=== PATIENT | female | born 1960 | race African-American/Black ===

== ENCOUNTER 2019-05-15 10:57 | Day surgery (SDC) | payer MEDICARE, OTHER ==
[~2019-05-15 10:57] MED LIST: ceFAZolin/Water 2 GM/20 ML 2 GM/20 ML SYRINGE IV NR
[2019-05-15] MEDS ORDERED: LACTATED RINGERS 1,000 ML ONE (12:05)
--- NOTE | 2019-05-15 12:11 | Anesthesia Consultation ---
Anesthesia Consult and Med Hx Date of service: 05/15/19 - Airway Anesthetic Teeth Evaluation: Good ROM Head & Neck: Adequate Mental/Hyoid Distance: Adequate Mallampati Class: Class I Intubation Access Assessment: Good - Pulmonary Exam CTA: Yes - Cardiac Exam Cardiac Exam: RRR - Pre-Operative Health Status ASA Pre-Surgery Classification: ASA1 Proposed Anesthetic Plan: General Nerve Block: supraclavicular
[2019-05-15] MEDS ORDERED: HYDROmorphone 1 MG/1 ML INJ IV PRN (12:12)
[2019-05-15] MEDS ORDERED: fentaNYL 100 MCG/2 ML INJ IV ONE (12:12)
[2019-05-15] MEDS ORDERED: ONDANSETRON 4 MG/2 ML INJ IV PRN (12:12)
--- NOTE | 2019-05-15 12:12 | Anesthesia Day of Surgery ---
Anesthesia Day of Surgery - Day of Surgery Patient Examined: Yes Patient H&P Reviewed: Yes Patient is NPO: Yes
[2019-05-15] MEDS ORDERED: BUPIVACAINE-EPINEPHRINE/PF 0.5%-1:200,000 (30 ML) VIAL INFILTRATI ONE (12:17)
[2019-05-15] MEDS ORDERED: CELECOXIB 200 MG CAP PO NR (13:00)
[2019-05-15] MEDS ORDERED: GABAPENTIN 300 MG CAP PO NR (13:00)
[2019-05-15] MEDS ORDERED: MIDAZOLAM 2 MG/2 ML INJ IV NR (13:00)
[2019-05-15] MEDS ORDERED: LACTATED RINGERS 1,000 ML IV SCH (13:00)
[2019-05-15] MEDS ORDERED: BUPIVACAINE/PF (0.25%) 2.5 MG/ML 30 ML VIAL INFILTRATI ONE (14:29)
[2019-05-15] MEDS ORDERED: NEOMY 40 MG/POLYMYXIN B 200,000 UNITS/ML (GU) AMPULE IR ONE (14:29)
[2019-05-15] MEDS ORDERED: LIDOCAINE MPF (2%) 20 MG/1 ML VIAL 5 ML ONE (14:36)
[2019-05-15] MEDS ORDERED: HYDROmorphone 1 MG/1 ML INJ ONE (14:36)
[2019-05-15] MEDS ORDERED: PROPOFOL 200 MG/20 ML VIAL IV ONE (14:36)
[2019-05-15] MEDS ORDERED: PHENYLEPHRINE/NS 1,000 MCG/10 ML SYRINGE (OR USE) IV ONE (15:26)
[2019-05-15] MEDS ORDERED: ONDANSETRON 4 MG/2 ML INJ ONE (15:45)
--- NOTE | 2019-05-15 16:15 | XRay Report ---
XR forearm LT INDICATION / CLINICAL INFORMATION: LT RADIUS FX/ORIF LT FOREARM. COMPARISON: None available. FINDINGS: A ventral metallic plate, wires and screws transfix a fracture of the distal radial shaft. There is m ild postsurgical gas in the soft tissues. No complication of surgery is seen. Fluoroscopy time: 3 seconds. Fluoroscopic images: 2. Signer Name: Bean Corrales MD Signed: 05/15/2019 4:11 PM Workstation Name: [id number]
--- NOTE | 2019-05-15 17:32 | Post Anesthesia Evaluation ---
- Post Anesthesia Evaluation Patient Participated: Yes Airway Patent: Yes Stable Respiratory Function: Yes Nausea/Vomiting: No Temp > 96.8F: Yes Pain Manageable: Yes Adequeate Hydration: Yes Anesthesia Complications: No Block Receding Appropriately: Not Applicable Patient on Ventilator: No
[2019-05-15 19:20] VITALS: BP 122/72
--- NOTE | 2019-05-17 23:11 | Procedure Note ---
Date of procedure: 05/15/19 Pre-op diagnosis: displaced left radial shaft fracture Post-op diagnosis: same Procedure: Open reduction internal fixation left radial shaft fracture Procedure The patient was brought to the OR [place] I table in supine position following induction and intubation by anesthesia the patient's leftt upper extremity was prepped and draped in the usual sterile manner. A timeout procedure was done to identify the patient and the correct operative site.The arm was then exsanguinated followed by inflation of the pneumatic tourniquet to 250 mmHg. A volar incision was made over the middle to proximal third of the forearm along the radial border this was then taken down through skin and subcutaneous the brachioradialis muscle was identified and using the inter-nervous plane the neurovascular structures were seen and retracted out of the operative field this brought us down to the fracture site using a periosteal elevator the soft tissues were debrided from the fracture site using 2 bone-holding forceps the fracture was then manipulated into a reduced position a diameter interfragmentary lag screw was then passed from proximal to distal following this a 6 hole 3.5 locked plate was then placed against the volar surface of the radius and secured bilaterally of an AP and lateral view was obtained showing good reduction at the fracture and placement of our hardware next the wound was copiously irrigated and was closed in a standard routine fashion. Dressings were applied as well as a well padded volar splint the patient tolerated the procedure there were no complications and he was taken to postanesthesia recovery Anesthesia: MAC, regional Surgeon: RABIA ESCOBAR Engineer Chief: ALYSSA LARA Estimated blood loss: minimal Pathology: none
== END 2019-05-15 10:58 | disposition home or self-care (01) ==
LOC: OR 10:57
PROVIDERS: ATTEND Orthopaedic Surgery
DX: S52.302A Unspecified fracture of shaft of left radius, initial encounter for closed fracture (principal); Z79.899 Other long term (current) drug therapy; Z98.890 Other specified postprocedural states; X58.XXXA Exposure to other specified factors, initial encounter; Y93.89 Activity, other specified; Y92.89 Other specified places as the place of occurrence of the external cause; Y99.8 Other external cause status
CPT/HCPCS: 25515; 73090; C1713; J0690; J1170; J2250; J2370; J2405; J2704; J3010; J7120; 64450

== ENCOUNTER 2019-07-08 12:19 | Outpatient (CLI) | payer OTHER ==
--- NOTE | 2019-07-08 13:40 | XRay Report ---
LEFT FOREARM HISTORY: Follow-up radius fracture. COMPARISON: 05/12/2019 TECHNIQUE: 2 views of the left forearm were obtained. FINDINGS: Bones: A metal plate and screws traverse a comminuted minimally displaced fracture of the radius invo lving the middle one third of the radius. No apparent callus has developed. Joint spaces: Maintained. Soft tissues: No significant abnormality. Additional findings: Stable avulsion fracture of the ulnar styloid. IMPRESSION: 1. Status post ORIF distal radius fracture with no change in appearance of the hardware and fracture fragments. Signer Name: Brandon Gonzalez MD Signed: 07/08/2019 1:35 PM Workstation Name: [id number]
== END 2019-07-08 12:20 | disposition home or self-care (01) ==
LOC: XRAY 12:19
PROVIDERS: ATTEND Orthopaedic Surgery
DX: S52.392D Other fracture of shaft of radius, left arm, subsequent encounter for closed fracture with routine healing (principal); X58.XXXD Exposure to other specified factors, subsequent encounter

== ENCOUNTER 2019-09-16 14:51 | Outpatient (CLI) | payer OTHER ==
--- NOTE | 2019-09-16 15:42 | XRay Report ---
Left forearm, 2 views INDICATION: Postop pain FINDINGS: There is been open reduction and internal fixation of a transverse fracture at the junction of the mid and distal thirds of the radius with side plate and bridging screws. Fragments appear in good alignment on the views obtained. Fracture lines remain however. Cerclage wires are also seen in this area. The ulna is intact. No definite osteomyelitis and no new fracture. Signer Name: Eliu Plasencia MD Signed: 09/16/2019 3:38 PM Workstation Name: [id number]
== END 2019-09-16 14:52 | disposition home or self-care (01) ==
LOC: XRAY 14:51
PROVIDERS: ATTEND Orthopaedic Surgery
DX: S52.302D Unspecified fracture of shaft of left radius, subsequent encounter for closed fracture with routine healing (principal); X58.XXXD Exposure to other specified factors, subsequent encounter